=== PATIENT | female | born 1975 | race Caucasian/White ===

== ENCOUNTER 2018-07-21 16:10 | Emergency (ER) | payer MEDICAID ==
[2018-07-21] MEDS ORDERED: SODIUM CHLORIDE 0.9% 1,000 ML IV ONE (17:10)
--- NOTE | 2018-07-21 17:13 | ED Physician Documentation ---
PD HPI ABD PAIN - Stated complaint Stated Complaint: ABD PX - Chief complaint Chief Complaint: Abd Pain - History obtained from History obtained from: Patient - History of Present Illness Timing - onset: Other (8 days ago she developed a diffuse abdominal pain, some shortness of breath which was worse when supine and decreased appetite. She went to an urgent care and diagnosed with UTI. She says there was blood in her urine and she was started on a twice a day antibiotic. I presume Bactrim from her description. About 4 days ago she acutely worsened and the pain moved to the right lower quadrant and she has had fevers and chills and decreased appetite. She has not concerned for or STD and she has no vaginal discharge.) Review of Systems Ten Systems: 10 systems reviewed and negative Constitutional: reports: Fever, Chills Respiratory: denies: Dyspnea, Cough GI: reports: Abdominal Pain. denies: Nausea, Vomiting, Constipation, Diarrhea, Hematemesis, Bloody / black stool : reports: Dysuria. denies: Frequency Musculoskeletal: denies: Neck pain, Back pain PD PAST MEDICAL HISTORY - Past Medical History Past Medical History: No - Past Surgical History Past Surgical History: No - Present Medications Home Medications: Ambulatory Orders Medication Instructions Recorded Confirmed No Known Home Medications 07/21/18 07/21/18 - Allergies Allergies/Adverse Reactions: Allergies Allergy/AdvReac Type Severity Reaction Status Date / Time No Known Drug Allergies Allergy Verified 07/21/18 16:58 - Social History Does the pt smoke?: No Does the pt have substance abuse?: No - Family History Family history: reports: Non contributory PD ED PE NORMAL - Vitals Vital signs reviewed: Yes (Febrile, tachycardic) - General General: Alert and oriented X 3, No acute distress - HEENT HEENT: PERRL, EOMI - Neck Neck: Supple, no meningeal sign, No bony TTP - Cardiac Cardiac: RRR, No murmur - Respiratory Respiratory: No respiratory distress, Clear bilaterally - Abdomen Abdomen: Normal bowel sounds, Soft, Other (Focal right lower quadrant tenderness without surgical signs) - Back Back: No CVA TTP, No spinal TTP - Derm Derm: Normal color, Warm and dry - Extremities Extremities: No edema, No calf tenderness / cord - Neuro Neuro: Alert and oriented X 3, Normal speech - Psych Psych: Normal mood, Normal affect Results - Vitals Vitals: Vital Signs - 24 hr 07/21/18 07/21/18 07/21/18 16:52 19:04 19:44 Temperature 38.6 C H 38.1 C H Heart Rate 103 H 89 84 Respiratory 18 20 22 Rate Blood Pressure 140/71 H 122/77 122/67 O2 Saturation 98 98 98 Oxygen O2 Source Room air - Labs Labs: Laboratory Tests 07/21/18 07/21/18 07/21/18 17:15 17:15 17:50 WBC 17.9 H RBC 4.59 Hgb 13.6 Hct 40.8 MCV 88.9 MCH 29.5 MCHC 33.2 RDW 13.3 Plt Count 522 H MPV 7.0 L Neut # (Auto) Not Reportable Lymph # (Auto) Not Reportable Ector # (Auto) Not Reportable Eos # (Auto) Not Reportable Baso # (Auto) Not Reportable Absolute Nucleated RBC Not Reportable Total Counted 100 Band Neuts % (Manual) 1 Reactive Lymphs % (Man) 4 Abnorm Lymph % (Manual) 0 Nucleated RBC % Not Reportable Neutrophils # (Manual) 12.7 H Lymphocytes # (Manual) 4.7 H Monocytes # (Manual) 0.5 Eosinophils # (Manual) 0.0 Basophils # (Manual) 0.0 Manual Slide Review Indicated Platelet Estimate INCREASED (>450,000) Platelet Morphology NORMAL APPEARANCE RBC Morph Micro Appear NORMAL APPEARANCE PT INR Sodium Potassium Chloride Carbon Dioxide Anion Gap BUN Creatinine Estimated GFR (MDRD) Glucose Lactic Acid Calcium Total Bilirubin AST ALT Alkaline Phosphatase Total Protein Albumin Globulin Albumin/Globulin Ratio Lipase Urine Color DARK YELLOW Urine Clarity HAZY Urine pH 6.5 Ur Specific [place] 1.020 1.020 Urine Protein >=300 H Urine Glucose (UA) NEGATIVE Urine Ketones >=80 H Urine Occult Blood MODERATE H Urine Nitrite NEGATIVE Urine Bilirubin MODERATE H Urine Urobilinogen 0.2 (NORMAL) Ur Leukocyte Esterase NEGATIVE Urine RBC 11-25 H Urine WBC 6-10 H Ur Squamous Epith Cells FEW Squamous Urine Bacteria Moderate H Urine Mucus Few Strands Ur Microscopic Review INDICATED Urine Culture Comments INDICATED Urine HCG, Qual NEGATIVE 07/21/18 07/21/18 07/21/18 17:50 17:50 19:00 WBC RBC Hgb Hct MCV MCH MCHC RDW Plt Count MPV Neut # (Auto) Lymph # (Auto) Ector # (Auto) Eos # (Auto) Baso # (Auto) Absolute Nucleated RBC Total Counted Band Neuts % (Manual) Reactive Lymphs % (Man) Abnorm Lymph % (Manual) Nucleated RBC % Neutrophils # (Manual) Lymphocytes # (Manual) Monocytes # (Manual) Eosinophils # (Manual) Basophils # (Manual) Manual Slide Review Platelet Estimate Platelet Morphology RBC Morph Micro Appear PT 18.2 H INR 1.6 H Sodium 133 L Potassium 3.2 L Chloride 97 L Carbon Dioxide 18 L Anion Gap 18.0 H BUN 9 Creatinine 0.8 Estimated GFR (MDRD) 79 L Glucose 97 Lactic Acid 1.2 Calcium 8.9 Total Bilirubin 1.1 H AST 25 ALT 19 Alkaline Phosphatase 77 Total Protein 8.4 H Albumin 3.8 Globulin 4.7 H Albumin/Globulin Ratio 0.8 L Lipase 26 Urine Color Urine Clarity Urine pH Ur Specific [place] Urine Protein Urine Glucose (UA) Urine Ketones Urine Occult Blood Urine Nitrite Urine Bilirubin Urine Urobilinogen Ur Leukocyte Esterase Urine RBC Urine WBC Ur Squamous Epith Cells Urine Bacteria Urine Mucus Ur Microscopic Review Urine Culture Comments Urine HCG, Qual - Rads (name of study) CT A/P Radiology: EMP read contemporaneously (Perforated sigmoid diverticulitis with abscesses, a 3 x 3 cm abscess in the right lower quadrant and a 4 x 3.5 cm abscess between the sigmoid and urinary bladder.) PD MEDICAL DECISION MAKING - ED course ED course: 43-year-old woman with history of abdominal pain that is worsening in the right lower quadrant. Workup demonstrates perforated diverticulitis with abscesses. Unfortunately [facility] is full and I am unable to admit her here. A call was placed [facility] for potential transfer at [phone]. She was given Zosyn and Flagyl IV. I spoke with the on-call surgeon at [facility], Dr. White, he has only intermittent and rare access to interventional radiology and felt she should be transferred to a place with more ready IR access. Got in touch with [facility]. The surgeon there, Dr. Jaime was in a procedure. She will call me back at the close of the procedure. She called me back around [phone] and accepted the patient. Cobras were completed. - Sepsis Event Vital Signs: Vital Signs - 24 hr 07/21/18 07/21/18 07/21/18 16:52 19:04 19:44 Temperature 38.6 C H 38.1 C H Heart Rate 103 H 89 84 Respiratory 18 20 22 Rate Blood Pressure 140/71 H 122/77 122/67 O2 Saturation 98 98 98 Oxygen O2 Source Room air Departure - Departure Disposition: 02 Transfer Acute Care Hosp Clinical Impression: Perforation of intestine due to diverticulitis of gastrointestinal tract, Pelv ic abscess Condition: Serious
[2018-07-21] MEDS ORDERED: KETOROLAC 60 MG/2 ML VIAL IVP STA (17:17)
[2018-07-21] MEDS ORDERED: IOPAMIDOL-300 100 ML VIAL ONE (17:21)
[2018-07-21 17:55] LABS: GLUCOSE, URINE (UA) NEGATIVE (NEGATIVE); KETONES,URINE (UA) >=80 mg/dL (NEGATIVE); LEUKOCYTE ESTERASE, URINE NEGATIVE (NEGATIVE); NITRITE,URINE NEGATIVE (NEGATIVE); OCCULT BLOOD,URINE MODERATE (NEGATIVE); PH,URINE 6.5 PH (5.0-7.5); PROTEIN,URINE >=300 mg/dL (NEGATIVE); UROBILINOGEN,URINE 0.2 (NORMAL) E.U./dL (NORMAL)
[2018-07-21 18:00] LABS: BASOPHILS % (AUTO) 0.4 %; EOSINOPHILS % (AUTO) 0.1 %; HGB - HEMOGLOBIN 13.6 g/dL (12.0-16.0); LYMPHOCYTES % (AUTO) 21.2 %; MEAN CORPUSCULAR HEMOGLOBIN 29.5 pg (27.0-31.0); MEAN CORPUSCULAR HGB CONC 33.2 g/dL (32.0-36.0); MEAN CORPUSCULAR VOLUME 88.9 fL (81.0-99.0); MONOCYTES % (AUTO) 5.1 %; NEUTROPHILS % (AUTO) 73.2 %; PLT - PLATELET COUNT 522 10^3/uL (130-450); RED BLOOD COUNT 4.59 10^6/uL (4.20-5.40); RED CELL DISTRIBUTION WIDTH 13.3 % (12.0-15.0); WHITE BLOOD COUNT 17.9 x10^3/uL (4.8-10.8)
[2018-07-21 18:02] LABS: BILIRUBIN,URINE MODERATE (NEGATIVE); CLARITY,URINE HAZY (CLEAR); ICTOTEST,URINE POSITIVE
[2018-07-21 18:03] LABS: BACTERIA,URINE Moderate /HPF (None Seen); HCG UR QUAL NEGATIVE; MUCUS,URINE Few Strands; SQUAMOUS EPITHELIAL CELL,UR FEW Squamous (<= Few)
[2018-07-21 18:10] LABS: ALBUMIN 3.8 g/dL (3.2-5.5); ALBUMIN/GLOBULIN RATIO 0.8 (1.0-2.2); BILIRUBIN,TOTAL 1.1 mg/dL (0.2-1.0); CALCIUM 8.9 mg/dL (8.5-10.3); CREATININE 0.8 mg/dL (0.4-1.0); TOTAL PROTEIN 8.4 g/dL (6.7-8.2)
[2018-07-21 18:13] LABS: ABNORMAL LYMPHS % (MANUAL) 0 %
[2018-07-21 18:16] LABS: INR 1.6 (0.8-1.2); PT - PROTHROMBIN TIME 18.2 secs (9.9-12.6)
[2018-07-21] MEDS ORDERED: HYDROmorphone 1 MG/ML CARPUJECT IVP STA ×2 (18:17→20:17)
[2018-07-21 18:32] LABS: BAND NEUTROPHILS % (MANUAL) 1 %; LYMPHOCYTES # (MANUAL) 4.7 10^3/uL (1.5-3.5); LYMPHOCYTES % (MANUAL) 22 %; MONOCYTES # (MANUAL) 0.5 10^3/uL (0.0-1.0); NEUTROPHILS # (MANUAL) 12.7 10^3/uL (1.5-6.6); NEUTROPHILS % (MANUAL) 70 %
[2018-07-21 18:33] LABS: PLATELET ESTIMATE, MANUAL INCREASED (>450,000) (NORMAL); PLATELET MORPHOLOGY NORMAL APPEARANCE (NORMAL); RBC MORPHOLOGY (MULTIPLE) NORMAL APPEARANCE (NORMAL)
[2018-07-21] MEDS ORDERED: IOPAMIDOL-300 100 ML VIAL IVP ONE (18:47)
--- NOTE | 2018-07-21 19:07 | CT Report ---
Reason: IV only, RLQ pain Procedure Date: 07/21/2018 Accession Number: [id number] / [id number] Procedure: CT - Abdomen/Pelvis W/ CPT Code: FULL RESULT: EXAM: CT ABDOMEN AND PELVIS EXAM DATE: 07/21/2018 06:45 PM. CLINICAL HISTORY: IV only, RLQ pain. COMPARISONS: None. TECHNIQUE: Routine helical CT imaging was performed through the abdomen and pelvis. IV contrast: 100 ML ISOVUE 300. Enteric contrast: No. Reconstructions: Coronal and sagittal. In accordance with CT protocol optimization, one or more of the following dose reduction techniques were utilized for this exam: automated exposure control, adjustment of mA and/or KV based on patient size, or use of iterative reconstructive technique. FINDINGS: Lung Bases: Unremarkable. Liver: Normal. No masses. Gallbladder/Bile Ducts: Unremarkable. Spleen: Normal. Pancreas: Normal. Adrenal Glands: Normal. Kidneys: Normal. No masses or hydronephrosis. Peritoneal Cavity/Bowel: There is sigmoid colon diverticulitis with a small pericolonic air collection consistent with perforation. A 3.0 x 3.0 cm abscess is seen in the right lower quadrant with a second 4.0 x 3.5 cm abscess between the sigmoid colon and urinary bladder. The appendix is normal. Pelvic Organs: Normal. The bladder and visualized pelvic organs are within normal limits. Vasculature: No aneurysms or other significant abnormality. Bones: No significant abnormality. Other: None. IMPRESSION: 1. Perforated sigmoid colon diverticulitis with abscesses in the right lower quadrant and between the sigmoid colon and urinary bladder as detailed above. RADIA
[2018-07-21] MEDS ORDERED: metroNIDAZOLE 500 MG/100 ML 500 MG/100 ML BAG IV ONE (19:12)
[2018-07-21] MEDS ORDERED: PIPERACILLIN/TAZOBACTAM 4.5 GM in SODIUM CHLORIDE 0.9% MINIBAG 100 ML IV STA (19:12)
[2018-07-21 22:27] VITALS: BP 101/60
== END 2018-07-21 22:39 | disposition short-term general hospital (02) ==
LOC: ED 16:10
DX: K57.80 Diverticulitis of intestine, part unspecified, with perforation and abscess without bleeding (principal); N73.9 Female pelvic inflammatory disease, unspecified
CPT/HCPCS: 74177; 80053; 81001; 81025; 83605; 83690; 85025; 85610; 87040; 87086; 96361; 96365; 96368; 96375; 96376; 99284; J1170; Q9967; 81003; 85730; 99285

== ENCOUNTER 2022-06-11 15:26 | Outpatient (CLI) | payer OTHER ==
[2022-06-11 16:38] VITALS: BP 119/78
--- NOTE | 2022-06-11 16:38 | SLEEP CARE CONSULTATION ---
Information from patient questionnaire entered by Gail Bettencourt MA. I have reviewed and concur with the information entered by Gail Bettencourt MA. This document represents the service I personally performed and the decisions made by , Faye Hammonds ARNP. History of Present Illness Service Date and Time: 06/11/2022 1526 Reason for Visit: New patient (ONSET 11/09/2021, NO PRIOR SS, ) Chief Complaint: reports: Insomnia, Unrefreshed sleep, Snoring, Excessive d aytime sleepiness, Frequent awakenings at night Date of Onset: 20 years Usual bedtime: 8 PM Time it takes to fall asleep: 10-20 minutes to hours, depending Snores at night: Yes Observed to quit breathing while asleep: Yes Sleeps alone due to snoring: No (lives alone) Number of times waking at night: 2-3 Reasons for waking at night: reports: Choking, Snoring, Bathroom, Other Toss, Turn, or Twitch while sleeping: Yes Recalls having dreams: Yes Usually gets out of bed at: [id number] Feels refreshed in the morning: No Morning headache: Yes (3 days a week; last 24 hr without medication) Sleepy or fatigued during the day: Yes Ever fallen asleep while driving: No Takes day naps: Yes (2 times a month, can fall asleep) Dreams during day naps: Yes Prior sleep studies: No Additional HPI information: I had the pleasure of seeing LOVELY MOTA today regarding the possibility of her having a sleep disorder. Her current complaints are Insomnia, Unrefreshed sleep, Snoring, Excessive daytime sleepiness and Frequent awakenings at night. She states she has a history of headaches and her doctor wanted to explore her sleep. She states she is a light sleeper and if she does wake up it feels like it takes an hour to go back to sleep. She wakes up tired. She states she would love to take a nap but is not able to turn her mind off and fall asleep. She will take melatonin to help her fall asleep and will take approximately 10-20 minutes to fall asleep. But, if she does not take anything she can lay there for hours before falling asleep. She has woke herself up snoring. She has a sleep norbert that tells her she snores, talks and sometimes coughing. She has woke up choking and gasping for air. She has had a time when she woke up coughing. 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 Patient is and lives in [place]. Have you smoked in the past 12 months: No Alcohol use: No Caffeine use: Yes Caffeine amount and frequency: 1 X DAILY Family History Family history of sleep disordered breathing: Yes Family Hx Sleep Apnea: Mother: Snoring, Sleep apnea - Untreated, Grandparent: Snoring Allergies and Home Medications Known drug allergies: No Drug allergies reviewed: Yes (NKDA) Home medication list reviewed: Yes Allergy and home medication list: Allergies No Known Drug Allergies Allergy (Verified 07/21/18 16:58) Medications: Wellbutrin 300mg qd hydroxyzine prn Review of Systems Review of systems same as previous: Yes Weight gain over past 5 years: 25 Cardiovascular: denies: high blood pressure Gastrointestinal: denies: heartburn Neurological: reports: headaches Psychiatric: reports: anxiety, depression Ear/Nose/Throat: reports: sinus problems, dry mouth/throat (usually in morning), wisdom teeth removed. denies: tonsillectomy Endocrine: reports: sluggishness Musculoskeletal: reports: neck pain Immunologic: reports: sneezing, allergies to food or environment (seasonal) Physical Exam Vital signs obtained and entered by: MEÑO HALL Blood Pressure: 119/78 (RESP 18, PULSE 80, RIGHT) Heart Rate: 81 O2 Saturation: 97 (MASK) Height: 5 ft 6 in Weight: 240 lb (CLOTHES) Body Mass Index: 38.7 BMI Classification: Obese Neck circumference: 14 (INCHES) Mouth and throat: narrow oropharynx Soft palate: long Hard palate: normal Uvula: normal Uvula visualization: 25% Mallampati Class III Tongue: enlarged in size with teeth sandy on lateral edges Tonsils: 1+ Neck: normal w/o lymphadenopathy or thyromegaly Heart: regular rate and rhythm Lungs: clear bilaterally Impression and Plan 1. Suspected Obstructive Sleep Apnea-Hypopnea Syndrome, as suggested by a history of loud and irregular snoring, gasping or choking in sleep, morning headache, frequent awakening during the night, unrefreshed sleep, cognitive impairment, and excessive daytime sleepiness. xNarrow oropharynx and obesity are common predisposing factors for obstructive sleep apnea-hypopnea syndrome. I recommend proceeding to polysomnography to confirm the diagnosis and to assess severity. If the patient has significant sleep disordered breathing, a manual CPAP titration study will also be performed to find the optimal treatment pressure. I informed the patient of what the sleep studies involve and after some discussion, obtained agreement to proceed. The pathophysiology of obstructive sleep apnea-hypopnea syndrome was discussed with the patient and health risks of cardiovascular and cerebrovascular disease if not treated. Risks of drowsy driving discussed in detail and patient advised to avoid long distance driving and to truss puller helper at the first sign of drowsiness. Patient agreed to plan. * Schedule polysomnography * Avoid long distance driving or driving when feeling sleepy. * Avoid alcohol, sedative and muscle relaxant around bedtime. * Attempt to lose weight. * Review instructions provided by trained office staff on how to prepare for the sleep study. * Return for follow-up after sleep study completed. Counseling Topics: Weight loss health impact Visit Type: In Office Time Spent with Patient (minutes): 30 Provider Statement: I spent 100% of the Face to Face Visit with the patient with greater than 50% spent counseling the patient and coordination of care.
== END 2022-06-11 15:27 | disposition home or self-care (01) ==
LOC: SC 15:26
PROVIDERS: ATTEND Nurse Practitioner Family
DX: G47.10 Hypersomnia, unspecified (principal); G47.8 Other sleep disorders; R51.9 Headache, unspecified; R06.83 Snoring; F32.A Depression, unspecified; E66.9 Obesity, unspecified; Z68.38 Body mass index [BMI] 38.0-38.9, adult
CPT/HCPCS: 99203; 99212

== ENCOUNTER 2022-08-21 09:50 | Outpatient (CLI) | payer OTHER ==
[2022-08-21 10:33] VITALS: BP 118/78
--- NOTE | 2022-08-21 10:33 | SLEEP CARE CONSULTATION ---
Information from patient questionnaire entered by Julieta Mckeon. I have reviewed and concur with the information entered by Julieta Mckeon. This document represents the service I personally performed and the decisions made by , Faye Hammonds ARNP. History of Present Illness Service Date and Time: 08/21/2022 0950 Previous diagnosis: Moderate, Obstructive Sleep Apnea-Hypopnea Syndrome AHI: 15.5 (in 2021) Reason for follow up: first compliance Equipment type: CPAP (set up 07/15, Resmed) Equipment obtained from: Other ([facility]; got initial supplies) Mask style: Nasal pillows Mask brand: Resmed ([id number]) Backup mask available: No (will keep old mask when replaced) Last cushion change: 1 week Prior sleep studies: No Year and Where: 2021 Type of Sleep Study: Home sleep study (F/U HST, 06/23/2022 [facility], POS,) HPI additional information: LOVELY MOTA was diagnosed to have moderate, AHI 15.5, obstructive sleep apnea- hypopnea syndrome and returned today for CPAP therapy first compliance follow- up. Sleep Study - Results Type of Sleep Study: Home sleep study (F/U HST, 06/23/2022 [facility], POS,) Prior sleep studies: No CPAP Compliance Data - Data Reviewed with Patient Average duration of nightly device use: 6 hours 52 mins Compliance rate %: 90 (29/30 days used) Current pressure setting (cmH2O): 4-15 (median 5.4, avg 7.7, max 8.8) Average residual AHI: 0.6 Central apnea: 0.0 Obstructive apnea: 0.3 Average large leak: 0.0 Subjective Patient concerns: reports: mask leak noise, other (running out of water). denies: aerophagia, mask discomfort, air blowing in eyes, condensation in mask/hose, nasal congestion, dry mouth, nose, throat, epistaxis Observed to snore while using device: No Current pressure setting perceived as: comfortable On therapy, patient: reports: sleeping better, awakening more refreshed. denies: drowsiness while driving Initial [place] Sleepiness Scale score: 12 (06/11/2022) Current [place] Sleepiness Scale score: 11 (08-21-2022) Allergies and Home Medications Drug allergies reviewed: Yes (NKDA) Home medication list reviewed: Yes (Vyvanse 30 mg daily) Allergy and home medication list: Allergies No Known Drug Allergies Allergy (Verified 07/21/18 16:58) Review of Systems Review of systems same as previous: Yes (no changes) Physical Exam Vital signs obtained and entered by: Julieta Huertas MA Blood Pressure: 118/78 (LEFT ARM) Heart Rate: 89 O2 Saturation: 96 Height: 5 ft 6 in Weight: 240 lb 3.2 oz Body Mass Index: 38.7 BMI Classification: Obese Impression and Plan 1. Obstructive Sleep Apnea-Hypopnea Syndrome, moderate, with good treatment compliance and good apnea control. On CPAP therapy, the patient has better sleep quality and is more rested overall. Patient states the pressure is comfortable and she has significant improvement of her sleep apnea. The patients pressure will be changed to autoCPAP 5-8 cmH20 to reflect pressures being used. Patient advised to contact me if pressure change is uncomfortable so that it can be adjusted. Goals for apnea control discussed. Patient has been having issues with the water reservoir running out of water. She is also having some nasal drainage from her left sinus that she states used to happen when the nostril was dry. She has her heated tube set at 86 degrees and her humidity at 4. I advised her to turn down the heated hose which should reduce water use so her chamber will not get empty before she gets up. She voiced understanding. Patient's apnea severity and rationale for treatment to reduce apnea, improve sleep quality and reduce cardiovascular and cerebrovascular events was reviewed. I also reviewed the benefit of consistent device use of CPAP for depression, anxiety and attention deficit. 2. Obesity, unspecified. Currently patients BMI is 38.7. Obesity increases the risk of apnea, CPAP pressure requirements and overall health risks especially cardiovascular and diabetes. Thus patient is advised to lose weight. * Change auto CPAP pressure to 5-8 cmH2O * Notify me if snoring with mask or feeling that the pressure is too much or too little * Attempt to lose weight * Call this office if any problems using CPAP * Return for follow up in 1-2 months, or sooner if concerns arise Counseling Topics: Spare mask, Weight loss health impact Visit Type: In Office Time Spent with Patient (minutes): 22 Provider Statement: I spent 100% of the Face to Face Visit with the patient with greater than 50% spent counseling the patient and coordination of care.
== END 2022-08-21 09:51 | disposition home or self-care (01) ==
LOC: SC 09:50
PROVIDERS: ATTEND Nurse Practitioner Family
DX: G47.33 Obstructive sleep apnea (adult) (pediatric) (principal); E66.9 Obesity, unspecified; Z68.38 Body mass index [BMI] 38.0-38.9, adult
CPT/HCPCS: 99212; 99213

== ENCOUNTER 2022-11-13 11:08 | Outpatient (CLI) | payer OTHER ==
[2022-11-13 11:38] VITALS: BP 122/76
--- NOTE | 2022-11-13 11:38 | SLEEP CARE CONSULTATION ---
Information from patient questionnaire entered by Lily Verduzco. I have reviewed and concur with the information entered by Lily Verdzuco. This document represents the service I personally performed and the decisions made by , Faye Hammonds ARNP. History of Present Illness Service Date and Time: 11/13/2022 1108 Previous diagnosis: Moderate, Obstructive Sleep Apnea-Hypopnea Syndrome AHI: 15.5 (in 2021) Reason for follow up: other (2 MONTH F/U) Equipment type: CPAP (RESMED Airsense 11) Equipment obtained from: Other ([facility]; needs supplies) Mask style: Nasal pillows Backup mask available: No (will need keep old mask when replaced) Last cushion change: 1 + month Prior sleep studies: No Year and Where: 2021 Type of Sleep Study: Home sleep study HPI additional information: LOVELY MOTA was diagnosed to have moderate, AHI 15.5, obstructive sleep apnea- hypopnea syndrome and returned today for CPAP therapy two month follow-up. Sleep Study - Results Type of Sleep Study: Home sleep study Prior sleep studies: No Year and Where: 2021 CPAP Compliance Data - Data Reviewed with Patient Average duration of nightly device use: 6 hours 37 minutes Compliance rate %: 57 (38/60 days used) Current pressure setting (cmH2O): 6-8 Average residual AHI: 0.3 Central apnea: 0.0 Obstructive apnea: 0.2 Subjective Missed days of use due to: reports: other (too tired and busy to clean supplies and does not use it) Patient concerns: reports: mask leak noise. denies: aerophagia, mask discomfort, air blowing in eyes, condensation in mask/hose, nasal congestion, dry mouth, nose, throat, epistaxis Observed to snore while using device: No Current pressure setting perceived as: comfortable On therapy, patient: reports: sleeping better, awakening more refreshed, being more awake and alert during the day, more rested overall, other (reduced amount of headaches). denies: drowsiness while driving Initial [place] Sleepiness Scale score: 12 Current [place] Sleepiness Scale score: 15 (11/13/22) Allergies and Home Medications Drug allergies reviewed: Yes (NKDA) Home medication list reviewed: Yes (no changes) Review of Systems Review of systems same as previous: Yes (no changes) Physical Exam Vital signs obtained and entered by: LILY Huertas MA Blood Pressure: 122/76 (LEFT ARM) Cuff size: regular Heart Rate: 78 O2 Saturation: 98 Height: 5 ft 6 in Weight: 233 lb 12.8 oz Body Mass Index: 37.7 BMI Classification: Obese Impression and Plan 1. Obstructive Sleep Apnea-Hypopnea Syndrome, moderate, with fair treatment compliance and good apnea control. On CPAP therapy, the patient has better sleep quality and is more rested overall. Patient has not received more supplies. She states she did order some in mid October but has not received them yet. I encouraged her to call her DME to get a status report on her order. She voiced understanding. Patient states she has a very busy schedule and will get very tired. When she is very tired she does not get her hose and water chamber cleaned as often as recommended. She also does try and wash her mask out daily and then is leaving it to dry and sometimes it is still wet at a later. I encouraged her to try mask cushion wipes that she can use daily so that she can use her mask every night. She may also wash and dry her hose and water chamber every 1 to 2 weeks. She voiced understanding and agreement. Patient's apnea severity and rationale for treatment to reduce apnea, improve sleep quality and reduce cardiovascular and cerebrovascular events was reviewed. I also reviewed the benefit of consistent device use of CPAP for depression, anxiety and attention deficit. 2. Obesity, unspecified. Currently patients BMI is 37.7. Obesity increases the risk of apnea, CPAP pressure requirements and overall health risks especially cardiovascular and diabetes. Thus patient is advised to lose weight. * Continue auto CPAP pressure at 6-8 cmH2O * Notify me if snoring with mask or feeling that the pressure is too much or too little * Attempt to lose weight * Call this office if any problems using CPAP * Return for follow up in 1-2 months, or sooner if concerns arise Counseling Topics: Spare mask, Weight loss health impact Visit Type: In Office Time Spent with Patient (minutes): 20 Provider Statement: I spent 100% of the Face to Face Visit with the patient with greater than 50% spent counseling the patient and coordination of care.
== END 2022-11-13 11:09 | disposition home or self-care (01) ==
LOC: SC 11:08
PROVIDERS: ATTEND Nurse Practitioner Family
DX: G47.33 Obstructive sleep apnea (adult) (pediatric) (principal); E66.9 Obesity, unspecified; Z68.37 Body mass index [BMI] 37.0-37.9, adult
CPT/HCPCS: 99212; 99213

== ENCOUNTER 2023-01-15 10:58 | Outpatient (CLI) | payer OTHER ==
[2023-01-15 11:45] VITALS: BP 126/82
--- NOTE | 2023-01-15 11:45 | SLEEP CARE CONSULTATION ---
Information from patient questionnaire entered by Julieta Verduzco. I have reviewed and concur with the information entered by Julieta Verduzco. This document represents the service I personally performed and the decisions made by , Faye Hammonds ARNP. History of Present Illness Service Date and Time: 01/15/2023 1058 Previous diagnosis: Moderate, Obstructive Sleep Apnea-Hypopnea Syndrome AHI: 15.5 (in 2021) Reason for follow up: one month (1-2 MONTH F/U) Equipment type: CPAP (set up 07/15, Resmed Airsense 11) Equipment obtained from: Other ([facility]; getting supplies) Mask style: Nasal pillows Backup mask available: Yes (old mask) Last cushion change: 1 week Prior sleep studies: No Year and Where: 2021 Type of Sleep Study: Home sleep study HPI additional information: LOVELY MOTA was diagnosed to have moderate, AHI 15.5, obstructive sleep apnea- hypopnea syndrome and returned today for CPAP therapy two month follow-up. Sleep Study - Results Type of Sleep Study: Home sleep study Prior sleep studies: No Year and Where: 2021 CPAP Compliance Data - Data Reviewed with Patient Average duration of nightly device use: 6 hours 30 minutes Compliance rate %: 67 (22/30 days) Current pressure setting (cmH2O): 6-8 Average residual AHI: 0.3 Central apnea: 0.0 Obstructive apnea: 0.1 Subjective Missed days of use due to: reports: mask issues Patient concerns: reports: mask discomfort. denies: aerophagia, air blowing in eyes, mask leak noise, condensation in mask/hose, nasal congestion, dry mouth, nose, throat, epistaxis Observed to snore while using device: No Current pressure setting perceived as: comfortable On therapy, patient: reports: sleeping better, awakening more refreshed, being more awake and alert during the day, more rested overall. denies: drowsiness while driving Initial [place] Sleepiness Scale score: 12 Current [place] Sleepiness Scale score: 11 (01/15/23) Allergies and Home Medications Known drug allergies: No Drug allergies reviewed: Yes Home medication list reviewed: Yes (no changes) Review of Systems Review of systems same as previous: Yes (no changes) Physical Exam Vital signs obtained and entered by: JULIETA Huertas MA Blood Pressure: 126/82 (LEFT ARM) Cuff size: regular Heart Rate: 71 O2 Saturation: 96 Height: 5 ft 6 in Weight: 233 lb 12.8 oz Body Mass Index: 37.7 BMI Classification: Obese Impression and Plan 1. Obstructive Sleep Apnea-Hypopnea Syndrome, moderate, with fair treatment compliance and good apnea control. On CPAP therapy, the patient has better sleep quality and is more rested overall. She still feels like breathing out against the air is difficult and can cause anxiety. After some discussion I recommended that she try a different style of mask so the pressure does not feel as concentrated. She is open to trying a full face mask. I was able to fit her with a Karishma MindJoltwear full face mask, size medium, with a good fit. She felt the mask was comfortable and was willing to try it. I will review with her next visit and if it works will write for a mask change. I did also advise patient to change the mask setting on her machine from nasal pillows to full face mask before using the new mask. She voiced understanding. Patient's apnea severity and rationale for treatment to reduce apnea, improve sleep quality and reduce cardiovascular and cerebrovascular events was reviewed. I also reviewed the benefit of consistent device use of CPAP for depression, anxiety and attention deficit. 2. Obesity, unspecified. Currently patients BMI is 37.7. Obesity increases the risk of apnea, CPAP pressure requirements and overall health risks especially cardiovascular and diabetes. Thus patient is advised to lose weight. * Continue auto CPAP pressure at 5-8 cmH2O * Notify me if snoring with mask or feeling that the pressure is too much or too little * Attempt to lose weight * Call this office if any problems using CPAP * Return for follow up in 3 months, or sooner if concerns arise Mask provided: Yes Counseling Topics: Spare mask, Weight loss health impact Visit Type: In Office Time Spent with Patient (minutes): 24 Provider Statement: I spent 100% of the Face to Face Visit with the patient with greater than 50% spent counseling the patient and coordination of care.
== END 2023-01-15 10:59 | disposition home or self-care (01) ==
LOC: SC 10:58
PROVIDERS: ATTEND Nurse Practitioner Family
DX: G47.33 Obstructive sleep apnea (adult) (pediatric) (principal); E66.9 Obesity, unspecified; Z68.37 Body mass index [BMI] 37.0-37.9, adult
CPT/HCPCS: 99212; 99213

== ENCOUNTER 2023-05-01 16:05 | Outpatient (CLI) | payer OTHER ==
--- NOTE | 2023-05-01 17:04 | SLEEP CARE CONSULTATION ---
Information from patient questionnaire entered by Julieta Verduzco. I have reviewed and concur with the information entered by Julieta Verduzco. This document represents the service I personally performed and the decisions made by , Faye Hammonds ARNP. History of Present Illness Service Date and Time: 05/01/2023 1605 Previous diagnosis: Moderate, Obstructive Sleep Apnea-Hypopnea Syndrome AHI: 15.5 (in 2021) Reason for follow up: three month (3 MONTH F/U) Equipment type: CPAP (set up 07/15/2022, Resmed Airsense 11) Equipment obtained from: Other ([facility]; getting supplies) Mask style: Full face Mask brand: Respironics (Dreamwear, medium cushion) Backup mask available: Yes (other mask) Last cushion change: 3 months Prior sleep studies: No Year and Where: 2021 Type of Sleep Study: Home sleep study HPI additional information: LOVELY MOTA was diagnosed to have moderate, AHI 15.5, obstructive sleep apnea- hypopnea syndrome and returned today for CPAP therapy three month follow-up. Sleep Study - Results Type of Sleep Study: Home sleep study Prior sleep studies: No Year and Where: 2021 CPAP Compliance Data - Data Reviewed with Patient Average duration of nightly device use: 6 hours 6 mins Compliance rate %: 67 (66/90 days used) Current pressure setting (cmH2O): 6-8 Average residual AHI: 0.3 Central apnea: 0 Obstructive apnea: 0.1 Subjective Patient concerns: reports: condensation in mask/hose. denies: aerophagia, mask discomfort, air blowing in eyes, mask leak noise, nasal congestion, dry mouth, nose, throat, epistaxis Current pressure setting perceived as: comfortable On therapy, patient: reports: sleeping better, awakening more refreshed, being more awake and alert during the day, more rested overall. denies: drowsiness while driving Initial [place] Sleepiness Scale score: 12 Current [place] Sleepiness Scale score: 8 (05/01/23) Allergies and Home Medications Known drug allergies: No Drug allergies reviewed: Yes Home medication list reviewed: Yes (Lamotrigine) Allergy and home medication list: Allergies No Known Drug Allergies Allergy (Verified 04/30/23 14:35) Review of Systems Review of systems same as previous: No (mood disorder-bipolar) Physical Exam Vital signs obtained and entered by: JULIETA Huertas MA Blood Pressure: 118/64 (LEFT ARM) Cuff size: regular Heart Rate: 87 O2 Saturation: 95 Height: 5 ft 6 in Weight: 228 lb 6.4 oz Weight change since last visit: 5 lb loss Body Mass Index: 36.8 BMI Classification: Obese Impression and Plan 1. Obstructive Sleep Apnea-Hypopnea Syndrome, moderate, with fair treatment compliance and good apnea control. On CPAP therapy, the patient has better sleep quality and is more rested overall. Patient really likes the Karishma PervacioWear with medium cushion that I fitted to her at her last appointment. She has been able to use her mask more and it is very comfortable for her. Her compliance has come up as well. Patient's apnea severity and rationale for treatment to reduce apnea, improve sleep quality and reduce cardiovascular and cerebrovascular events was reviewed. I also reviewed the benefit of consistent device use of CPAP for depression/anxiety and attention deficit. I will follow up with her in 6 months. 2. Obesity, unspecified. Currently patients BMI is 36.8. She has lost weight. Obesity increases the risk of apnea, CPAP pressure requirements and overall health risks especially cardiovascular and diabetes. Thus patient is advised to continue to try to lose weight. * Continue auto CPAP pressure at 6-8 cmH2O * Notify me if snoring with mask or feeling that the pressure is too much or too little * Attempt to lose weight * Call this office if any problems using CPAP * Return for follow up in 6 months, or sooner if concerns arise Counseling Topics: Spare mask, Weight loss health impact Visit Type: In Office Time Spent with Patient (minutes): 23 Provider Statement: I spent 100% of the Face to Face Visit with the patient with greater than 50% spent counseling the patient and coordination of care.
[2023-05-01 17:09] VITALS: BP 118/64
== END 2023-05-01 16:06 | disposition home or self-care (01) ==
LOC: SC 16:05
PROVIDERS: ATTEND Nurse Practitioner Family
DX: G47.33 Obstructive sleep apnea (adult) (pediatric) (principal); E66.9 Obesity, unspecified; Z68.36 Body mass index [BMI] 36.0-36.9, adult
CPT/HCPCS: 99212; 99213

== ENCOUNTER 2023-12-30 11:20 | Outpatient (CLI) | payer OTHER ==
--- NOTE | 2023-12-30 12:04 | Sleep Patient Instructions ---
Sleep Center Visit Summary - Patient Visit Information Reason for Visit: 7-month follow-up - Patient Instructions Additional Instructions: You were here for follow up of CPAP therapy. You will be continued on CPAP therapy with pressure at 6-8 cmH2O. You should follow up with sleep care in 12 months. You may contact us sooner for any questions or concerns. - Clinic Information Contact: [facility] [address] [place] [address] [email or web address] T: [phone]
--- NOTE | 2023-12-30 12:08 | SLEEP CARE CONSULTATION ---
Information from patient questionnaire entered by Lily Verduzco. I have reviewed and concur with the information entered by Lily Verduzco. This document represents the service I personally performed and the decisions made by , Faye Hammonds ARNP. History of Present Illness Service Date and Time: 12/30/2023 1120 Previous diagnosis: Moderate, Obstructive Sleep Apnea-Hypopnea Syndrome AHI: 15.5 (in 2021) Reason for follow up: other (7 MONTH F/U ) Equipment type: CPAP (set up 07/15/2022, Resmed Airsense 11) Equipment obtained from: Other ([facility]; getting supplies) Mask style: Full face (hybrid) Backup mask available: Yes (old mask) Last cushion change: rotating through 3 Prior sleep studies: No Year and Where: 2021 Type of Sleep Study: Home sleep study HPI additional information: LOVELY MOTA was diagnosed to have moderate, AHI 15.5, obstructive sleep apnea- hypopnea syndrome and returned today for CPAP therapy seven months follow-up. Sleep Study - Results Type of Sleep Study: Home sleep study Prior sleep studies: No Year and Where: 2021 CPAP Compliance Data - Data Reviewed with Patient Average duration of nightly device use: 6 HRS 48 MINS Compliance rate %: 79 (05/31/23-12/26/23; 174/210 days used) Current pressure setting (cmH2O): 6-8 Average residual AHI: 0.4 Central apnea: 0 Obstructive apnea: 0.2 Hypopnea: 0.1 Average large leak: 0.3 L/min Subjective Missed days of use due to: reports: other (cleaning schedule/time can limit used) Patient concerns: reports: mask leak noise (just changes position and it resolves). denies: aerophagia, mask discomfort, air blowing in eyes, condensation in mask/hose, nasal congestion, dry mouth, nose, throat, epistaxis Observed to snore while using device: No Current pressure setting perceived as: comfortable On therapy, patient: reports: sleeping better, awakening more refreshed, being more awake and alert during the day, more rested overall. denies: drowsiness while driving Initial [place] Sleepiness Scale score: 12 Current [place] Sleepiness Scale score: 9 (12/30/23) Allergies and Home Medications Known drug allergies: No Drug allergies reviewed: Yes Home medication list reviewed: Yes (stopped Vyvanse) Allergy and home medication list: Allergies No Known Drug Allergies Allergy (Verified 12/28/23 08:58) Review of Systems Review of systems same as previous: Yes (NO CHANGE) Physical Exam Vital signs obtained and entered by: LILY Huertas MA Blood Pressure: 118/72 (LEFT ARM) Cuff size: regular Heart Rate: 78 O2 Saturation: 99 Height: 5 ft 6 in Weight: 235 lb 6.4 oz Body Mass Index: 38.0 BMI Classification: Obese Impression and Plan 1. Obstructive Sleep Apnea-Hypopnea Syndrome, moderate, with good treatment compliance and good apnea control. On CPAP therapy, the patient has better sleep quality and is more rested overall. Patient has significant improvement of their sleep apnea and is satisfied with current CPAP therapy. Patient denies problems with oral dryness, nasal congestion, epistaxis, skin irritation or aerophagia. Patient's apnea severity and rationale for treatment to reduce apnea, improve sleep quality and reduce cardiovascular and cerebrovascular events was reviewed. I also reviewed the benefit of consistent device use of CPAP for attention deficit, depression and anxiety. 2. Obesity, unspecified. Currently patients BMI is 38. Obesity increases the risk of apnea, CPAP pressure requirements and overall health risks especially cardiovascular and diabetes. Thus patient is advised to lose weight. * Continue auto CPAP pressure at 6-8 cmH2O * Notify me if snoring with mask or feeling that the pressure is too much or too little * Attempt to lose weight * Call this office if any problems using CPAP * Return for follow up in 12 months, or sooner if concerns arise Counseling Topics: Spare mask, Weight loss health impact Follow up with Sleep Care in: 1 year Visit Type: In Office Time Spent with Patient (minutes): 13 Provider Statement: I spent 100% of the Face to Face Visit with the patient with greater than 50% spent counseling the patient and coordination of care.
[2023-12-30 12:14] VITALS: BP 118/72; O2SAT 99
== END 2023-12-30 11:21 | disposition home or self-care (01) ==
LOC: SC 11:20
PROVIDERS: ATTEND Nurse Practitioner Family
DX: G47.33 Obstructive sleep apnea (adult) (pediatric) (principal); E66.9 Obesity, unspecified; Z68.38 Body mass index [BMI] 38.0-38.9, adult
CPT/HCPCS: 99212

== ENCOUNTER 2024-07-06 12:56 | Outpatient (CLI) | payer OTHER ==
--- NOTE | 2024-07-07 08:28 | Mammography Report ---
BILATERAL DIGITAL SCREENING MAMMOGRAM 3D/2D: 07/06/2024 CLINICAL: Baseline exam. Routine screening. No prior exams were available for comparison. There are scattered areas of fibroglandular density in both breasts (category b / 25%-50% glandular t issue). There is a possible irregular asymmetry in the right breast anterior depth medial region seen on the craniocaudal view only. No other significant masses, calcifications, or other findings are seen in either breast. IMPRESSION: INCOMPLETE: NEEDS ADDITIONAL IMAGING EVALUATION The possible irregular asymmetry in the right breast is indeterminate. Additional views with possible ultrasound are recommended. Based on the Tyrer Cuzick model (a risk assessment model) the patient's lifetime risk is 12.9% and he r 10 year risk is 2.6%. According to the ACR, ACS, and NCCN guidelines, an annual breast MRI exam red ng with mammogram is recommended if the patient's lifetime risk is 20% or greater. This exam was interpreted at Station ID: [id number]. NOTE: For mammograms, a report in lay terms will be sent to the patient. Approximately 15% of breast malignancies will not be visualized mammographically. In the management of a palpable breast mass, a negative mammogram must not discourage biopsy of a clinically suspicious lesion. Electronically Signed By: Nahum Bo M.D. slc/:07/06/2024 16:23:56 ACR BI-RADS Category 0: Incomplete 3340F PARENCHYMAL PATTERN: (A) - The breast(s) demonstrate(s) scattered fibroglandular densities. BI-RADS CATEGORY: (0) - 0 Mammo and [place] [id number] Immediate follow-up LATERALITY: (B)
== END 2024-07-06 12:57 | disposition home or self-care (01) ==
LOC: DI 12:56
PROVIDERS: ATTEND Obstetrics & Gynecology
DX: Z12.31 Encounter for screening mammogram for malignant neoplasm of breast (principal); R92.323 Mammographic fibroglandular density, bilateral breasts; R92.8 Other abnormal and inconclusive findings on diagnostic imaging of breast

== ENCOUNTER 2024-08-02 11:01 | Outpatient (CLI) | payer OTHER ==
--- NOTE | 2024-08-02 11:55 | DEXA Report ---
PROCEDURE: Dexa Spine and/or Hip INDICATIONS: PREMATURE MENOPAUSE TECHNIQUE: Dual energy x-ray absorptiometry (DXA) was performed on a [employer] System. Regions measur ed are the AP Spine, femoral neck, and if needed forearm. COMPARISON: None FINDINGS: Lumbar Spine: Bone Mineral Density: 1.309 g/cm/cm,T score: 1.1. Left Femoral Neck: Bone Mineral Density: 0.998 g/cm/cm, T score: -0.3 . Left Hip: Bone Mineral Density: 1.112 g/cm/cm,T score: 0.8. FRAX risk factors: None given. (T score greater or equal to -1.0: NORMAL) (T score from -1.1 to -2.4: OSTEOPENIA) (T score less than or equal to -2.5 to: OSTEOPOROSIS) Impression: By WHO criteria, this patient has normal bone density. Patients with diagnosis of osteoporosis or osteopenia should have regular bone mineral density assess ment. For those eligible for Medicare, routine testing is allowed once every 2 years. Testing frequ ency can be increased for patients who have rapidly progressing disease or for those who are receivin g medical therapy to restore bone mass. Reviewed by: Doc Julian MD on 08/02/2024 11:54 AM PDT Approved by: Doc Julian MD on 08/02/2024 11:54 AM PDT Station ID: [id number]
== END 2024-08-02 11:02 | disposition home or self-care (01) ==
LOC: DI 11:01
PROVIDERS: ATTEND Obstetrics & Gynecology
DX: E28.319 Asymptomatic premature menopause (principal)